=== PATIENT | male | born 1980 | race Caucasian/White ===

== ENCOUNTER 2018-07-10 02:58 | Emergency (ER) | payer SELFPAY ==
[~2018-07-10] VITALS: Ht 194.3 cm; Wt 85.0 kg
[2018-07-10 03:00] VITALS: BP 131/79
--- NOTE | 2018-07-10 03:12 | NUR ---
R TESTICLE PAIN FOR SEVERAL DAYS, STATES THAT HE SAW BLOOD IN HIS UNDERWEAR TONIGHT WHEN WENT TO TAKE A SHOWER.
--- NOTE | 2018-07-10 03:22 | NUR ---
MEDICATED FOR PAIN PER ORDER, URINE SPE COLLECTED AND SENT AND PT TO [facility] AT THIS TIME
[2018-07-10] MEDS ORDERED: ACETAMINOPHEN 500 MG TABLET PO ONE (03:30)
--- NOTE | 2018-07-10 03:31 | NUR ---
[place] barrett in ED - 07/10/18 at 0339 by ALBIN COFFEE CART REMAINS CLOSED, PT AWARE AND UNDERSTANDING, REMAINS NAD AT THIS TIME, MIGEL LLANOS
--- NOTE | 2018-07-10 03:39 | NUR ---
[place] bar[place] in [facility] - 07/10/18 at 0341 by ALBIN COFFEE CART REMAINS CLOSED, PT AWARE, NAD, MIGEL LLANOS
[2018-07-10 04:03] LABS: MICROSCOPIC NOT IND
[2018-07-10 04:05] LABS: CULTURE INDICATED? NO
[2018-07-10] MEDS ORDERED: AZITHROMYCIN 250 MG TABLET ONE (04:15)
[2018-07-10] MEDS ORDERED: CEFTRIAXONE 250 MG ONE (04:15)
[2018-07-10] MEDS ORDERED: CEFTRIAXONE 250 MG IM ONE (04:30)
[2018-07-10] MEDS ORDERED: AZITHROMYCIN 500 MG TABLET PO ONE (04:30)
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
== END 2018-07-10 04:51 | disposition home or self-care (01) ==
LOC: ED 03:47
DX: N50.812 Left testicular pain (principal); F17.200 Nicotine dependence, unspecified, uncomplicated; F12.10 Cannabis abuse, uncomplicated; F15.10 Other stimulant abuse, uncomplicated; Z90.89 Acquired absence of other organs
CPT/HCPCS: 76870; 81003; 87491; 87591; 99284